=== PATIENT | male | born 1995 | race African-American/Black ===

== ENCOUNTER 2021-10-24 16:05 | Emergency (ER) | payer OTHER ==
[~2021-10-24] VITALS: Ht 182.9 cm; Wt 80.0 kg
[2021-10-24] MEDS ORDERED: IBUPROFEN 600MG TABLET PO ONE (16:30)
[2021-10-24] MEDS ORDERED: IBUP-2029 MT (18:17)
[2021-10-24 19:01] VITALS: BP 127/75
== END 2021-10-24 19:02 | disposition home or self-care (01) ==
LOC: ER 16:05
DX: S43.401A Unspecified sprain of right shoulder joint, initial encounter (principal); Y93.67 Activity, basketball; Y92.89 Other specified places as the place of occurrence of the external cause; Y99.8 Other external cause status
CPT/HCPCS: 29125; 73030; 99283; A4565

== ENCOUNTER 2021-11-21 14:52 | Emergency (ER) | payer OTHER ==
[~2021-11-21] VITALS: Ht 188 cm; Wt 89.0 kg
[~2021-11-21 14:52] MED LIST: IBUP-2029 MT
[2021-11-21 14:59] VITALS: BP 110/72
[2021-11-21] MEDS ORDERED: IBUP-2030 MT (18:21)
== END 2021-11-21 22:20 | disposition home or self-care (01) ==
LOC: ER 14:52
DX: M79.652 Pain in left thigh (principal)
CPT/HCPCS: 29515; 73562; 73590; 73610; 73630; 93971; 99284

== ENCOUNTER 2022-03-10 11:53 | Emergency (ER) | payer MEDICAID, OTHER ==
[~2022-03-10] VITALS: Ht 188 cm; Wt 80.0 kg
[~2022-03-10 11:53] MED LIST changes: +IBUP-2030 MT
[2022-03-10] MEDS ORDERED: KETOROLAC 60MG/2ML VIAL IM ONE (14:00)
[2022-03-10 14:03] LABS: CLARITY URINE CLEAR (CLEAR); COLOR URINE YELLOW (YELLOW); KETONES URINE NEGATIVE (NEGATIVE); LEUKOCYTE ESTERASE URINE NEGATIVE (NEGATIVE); NITRITE URINE NEGATIVE (NEGATIVE); OCCULT BLOOD URINE NEGATIVE (NEGATIVE); PROTEIN URINE NEGATIVE (NEGATIVE); SPECIFIC GRAVITY URINE 1.022 (1.005-1.030); UROBILINOGEN URINE 0.2 E.U./dL (0.2-1.0)
[2022-03-10] MEDS ORDERED: CEFTRIAXONE SODIUM 500 MG/VIAL IM ONE (15:00)
[2022-03-10] MEDS ORDERED: LIDOCAINE HCL 1% 20ML VIAL (Pyxis) INJ INFIL ONE (15:00)
[2022-03-10 15:18] LABS: CHLORIDE 103 mEq/L (98-107)
[2022-03-10 15:24] LABS: BASOPHILS % 0.7 % (0.0-2.0); EOSINOPHILS % 0.9 % (0.0-5.0); HEMATOCRIT. 38.7 % (42.0-52.0); HEMOGLOBIN. 12.8 g/dL (14.0-18.0); LYMPHOCYTES % 28.2 % (20.0-50.0); MEAN CORPUSCULAR HEMOGLOBIN 28.1 pg (28.0-32.0); MEAN CORPUSCULAR VOLUME 85.1 fL (80.0-94.0); MEAN PLATELET VOLUME 8.1 fl (7.4-10.4); MONOCYTES % 10.6 % (2.0-8.0); NEUTROPHILS % 59.6 % (40.0-76.0); PLATELET 325 x1000/uL (130-400); RED BLOOD CELL COUNT 4.55 mill/uL (4.7-6.1); RED CELL DISTRIBUTION WIDTH 14.7 % (11.6-14.6)
[2022-03-10] MEDS ORDERED: DOXY100C5 MT (15:48)
[2022-03-10 16:21] VITALS: BP 138/65
[2022-03-13 04:10] LABS: NEISSERIA GONORRHOEAE NAA Negative (Negative)
== END 2022-03-10 16:24 | disposition home or self-care (01) ==
LOC: ER 11:53
DX: N45.2 Orchitis (principal); N45.1 Epididymitis; N43.3 Hydrocele, unspecified; E87.1 Hypo-osmolality and hyponatremia; Z86.19 Personal history of other infectious and parasitic diseases
CPT/HCPCS: 36415; 76870; 80053; 81003; 85025; 87491; 87591; 93976; 96372; 99284; J0696; J1885; J3490

== ENCOUNTER 2024-03-17 11:00 | Emergency (ER) | payer MEDICAID ==
[~2024-03-17] VITALS: Ht 188 cm; Wt 77.1 kg
[~2024-03-17 11:00] MED LIST changes: +DOXY100C5 MT
[2024-03-17 11:16] VITALS: O2SAT 99
[2024-03-17] MEDS: ACETAMINOPHEN 325MG TABLET PO STA (12:03)
[2024-03-17 12:23] LABS: BASOPHILS % 0.4 % (0.0-2.0); EOSINOPHILS % 0.1 % (0.0-5.0); HEMOGLOBIN. 11.4 g/dL (14.0-18.0); LYMPHOCYTES % 24.6 % (20.0-50.0); MEAN CORPUSCULAR HEMOGLOBIN 27.8 pg (28.0-32.0); MEAN CORPUSCULAR HGB CONC 33.6 g/dL (31.0-37.0); MEAN CORPUSCULAR VOLUME 82.9 fL (80.0-94.0); MEAN PLATELET VOLUME 7.2 fl (7.4-10.4); MONOCYTES % 14.7 % (2.0-8.0); NEUTROPHILS % 60.2 % (40.0-76.0); PLATELET 429 x1000/uL (130-400); RED CELL DISTRIBUTION WIDTH 13.3 % (11.6-14.6); WHITE BLOOD COUNT 9.8 x1000/uL (4.5-11.0)
[2024-03-17 12:30] LABS: CHLORIDE 99 mEq/L (98-107); POTASSIUM 3.7 mEq/L (3.5-5.1); SODIUM 131 mEq/L (136-145)
[2024-03-17 12:31] LABS: CARBON DIOXIDE 28 mEq/L (21-32)
[2024-03-17 12:36] LABS: GLUCOSE 96 mg/dL (70-105)
[2024-03-17 12:37] LABS: UREA NITROGEN BLOOD 9 mg/dL (9-23)
[2024-03-17 13:05] LABS: EOSINOPHIL COUNT 0 /cu mm (0-450)
[2024-03-17 17:10] LABS: THYROID STIMULATING HORMONE 0.82 uIU/mL (0.55-4.78)
[2024-03-17] MEDS ORDERED: NAPR-681 PO (17:28)
[2024-03-17] MEDS ORDERED: D-ME473S50 PO (17:28)
[2024-03-17] MEDS: METHYLPREDNISOLONE SOD SUCC 125MG/2ML (ACT-O-VIAL) IM STA (17:29)
[2024-03-17 17:59] VITALS: BP 110/73; PULSE 57; RESP 14; TEMP 98.1
== END 2024-03-17 18:18 | disposition home or self-care (01) ==
LOC: ER 11:04
DX: S79.921A Unspecified injury of right thigh, initial encounter (principal); J06.9 Acute upper respiratory infection, unspecified; X58.XXXA Exposure to other specified factors, initial encounter; Y93.89 Activity, other specified; Y92.89 Other specified places as the place of occurrence of the external cause; Y99.8 Other external cause status
CPT/HCPCS: 99285; 93971; 76881; 71045; 80048; 82550; 84443; 85025; 36415; 73562; 93005; 96372; J2919